=== PATIENT | female | born 1980 | race Caucasian/White ===

== ENCOUNTER 2022-11-09 15:12 | Emergency (ER) | payer OTHER ==
[2022-11-09 15:27] VITALS: BMI 88.6
[2022-11-09 16:44] LABS: PH,URINE 5.5 (5.0-8.0); URINE APPEARANCE CLEAR; URINE BILIRUBIN NEGATIVE (NEGATIVE); URINE COLOR YELLOW; URINE GLUCOSE (UA) NEGATIVE (NEGATIVE); URINE KETONE NEGATIVE (NEGATIVE); URINE LEUK ESTERASE NEGATIVE (NEGATIVE); URINE NITRITE NEGATIVE (NEGATIVE); URINE PROTEIN NEGATIVE (NEGATIVE); URINE UROBILINOGEN 0.2 mg/dL (0.2-1.0)
[2022-11-09 17:37] VITALS: BP 107/65; RESP 20; TEMP 98
[2022-11-09 17:39] VITALS: PULSE 75
== END 2022-11-09 17:30 | disposition home or self-care (01) ==
LOC: JER 15:12
DX: O26.892 Other specified pregnancy related conditions, second trimester (principal); R10.30 Lower abdominal pain, unspecified; R30.0 Dysuria; Z3A.20 20 weeks gestation of pregnancy
CPT/HCPCS: 81003; 87086; 99283-25

== ENCOUNTER 2023-03-01 10:14 | Emergency (ER) | payer OTHER ==
[2023-03-01 10:34] VITALS: BMI 35.2
[2023-03-01 11:55] LABS: BASO % 0.3 % (0-2.0); EOS % 0.6 % (0-4.5); HEMATOCRIT 32.5 % (32.4-45.2); HEMOGLOBIN 11.3 GM/dL (10.7-15.3); LYMPH % 16.5 % (8-40); MCH 31.1 pg (25.7-33.7); MCHC 34.8 g/dl (32.0-36.0); MEAN CELL VOLUME 89.5 fl (80-96); MEAN PLT VOLUME 7.8 fl (7.5-11.1); MONO % 6.8 % (3.8-10.2); NEUT % 75.8 % (42.8-82.8); PLATELET COUNT 366 10^3/uL (134-434); RBC 3.63 M/mm3 (3.60-5.2); WHITE BLOOD COUNT 8.5 K/mm3 (4.0-10.0)
[2023-03-01 12:13] LABS: POTASSIUM 4.2 mmol/L (3.5-5.1)
[2023-03-01 12:14] LABS: BLOOD UREA NITROGEN 9.9 mg/dL (7-18)
[2023-03-01 12:16] LABS: CALCIUM 8.7 mg/dL (8.5-10.1)
[2023-03-01 12:17] LABS: CREATININE 0.6 mg/dL (0.55-1.3)
[2023-03-01] MEDS ORDERED: CLINDAMYCIN 600MG PREMIX IVPB 600 MG/50 ML BAG IVPB ONE ×2 (12:42→13:44)
[2023-03-01 16:05] VITALS: BP 106/67; PULSE 91; RESP 18; TEMP 97.6
== END 2023-03-01 18:29 | disposition home or self-care (01) ==
LOC: JER 10:14 → JERFT 10:14 → JER 18:29
DX: O99.713 Diseases of the skin and subcutaneous tissue complicating pregnancy, third trimester (principal); L03.116 Cellulitis of left lower limb; O26.893 Other specified pregnancy related conditions, third trimester; M25.572 Pain in left ankle and joints of left foot; R22.42 Localized swelling, mass and lump, left lower limb; L53.9 Erythematous condition, unspecified; Z3A.31 31 weeks gestation of pregnancy
CPT/HCPCS: 36415; 73610-TC-LT-FY; 73630-TC-LT; 76882-TC-RT-FY; 80048; 85025; 87040; 99285-25

== ENCOUNTER 2023-03-19 10:15 | Inpatient (IN) | payer OTHER ==
[2023-03-19] MEDS ORDERED: CITRIC ACID/SODIUM CITRATE 30 ML UNIT-DOSE CUP PO ONE (12:38)
[2023-03-19 13:02] LABS: INR 1.03 (0.83-1.09); PROTHROMBIN TIME (PATIENT) 11.9 SEC (9.7-13.0)
[2023-03-19 13:03] LABS: ACTIVATED PTT 28.6 SECONDS (25.2-36.5)
[2023-03-19] MEDS ORDERED: FENTANYL CITRATE/PF 50 MCG/ML VIAL ONE (13:16)
[2023-03-19] MEDS ORDERED: morphine SULFATE/PF 1 MG/2 ML (2cc Syringe - QUVA) ONE (13:16)
[2023-03-19] MEDS ORDERED: ceFAZolin SODIUM 1 GM VIAL ONE (13:17)
[2023-03-19] MEDS ORDERED: OXYTOCIN 10 UNITS/ML VIAL ONE ×2 (13:18→13:54)
[2023-03-19 13:50] VITALS: BMI 35.5
[2023-03-19] MEDS ORDERED: KETOROLAC TROMETHAMINE 30 MG/1 ML VIAL ONE (14:04)
[2023-03-19] MEDS ORDERED: ONDANSETRON 4 MG/2 ML VIAL ONE (14:04)
[2023-03-19] MEDS ORDERED: DEXAMETHASONE SOD PHOSPHATE 4 MG/1 ML VIAL ONE (14:04)
[2023-03-19] MEDS ORDERED: ELECTROLYTE-148 SOLN 1,000 ML IV SCH (14:45)
[2023-03-19 14:55] LABS: CORD BASE EXCESS -1.2 mmol/L (0-2); CORD HCO3 24.7 mmHg (20-29); CORD PCO2 45.7 mmHg (30-78); CORD pH 7.351 (7.14-7.44)
[2023-03-19 14:57] LABS: CORD HCO3 24.8 mmHg (20-29); CORD PCO2 56.4 mmHg (30-78); CORD pH 7.261 (7.14-7.44)
[2023-03-19] MEDS ORDERED: ACETAMINOPHEN 1000 MG/100 ML BAG IVPB PRN (15:07)
[2023-03-19] MEDS ORDERED: ONDANSETRON 4 MG/2 ML VIAL IVPB PRN (15:07)
[2023-03-19] MEDS ORDERED: IBUPROFEN 600 MG TABLET (FP) PO PRN (15:07)
[2023-03-19] MEDS ORDERED: SENNOSIDES/DOCUSATE COMBO (SENNA PLUS) TABLET (UD) PO PRN (15:07)
[2023-03-19] MEDS ORDERED: ACETAMINOPHEN 325 MG TABLET (FP) PO PRN ×2 (15:07→15:15)
[2023-03-19] MEDS ORDERED: IBUPROFEN 800 MG/8 ML IJ IVPB PRN (15:07)
[2023-03-19] MEDS ORDERED: morphine SULFATE/PF 1 MG/2 ML (2cc Syringe - QUVA) EP ONE (15:15)
[2023-03-19] MEDS ORDERED: ONDANSETRON 4 MG/2 ML VIAL IVPUSH PRN (15:15)
[2023-03-19] MEDS: OXYTOCIN 20 UNITS in 0.9% NS 20 UNIT/1,000 ML INFUS.BAG IV SCH ×2 (16:21→23:24)
[2023-03-19] MEDS ORDERED: OXYTOCIN 20 UNITS in 0.9% NS 20 UNIT/1,000 ML INFUS.BAG IV ONE (16:25)
[2023-03-20 08:06] LABS: BASO % 0.4 % (0-2.0); EOS % 0.5 % (0-4.5); HEMATOCRIT 26.2 % (32.4-45.2); HEMOGLOBIN 8.9 GM/dL (10.7-15.3); LYMPH % 24.5 % (8-40); MEAN CELL VOLUME 88.2 fl (80-96); MEAN PLT VOLUME 8.1 fl (7.5-11.1); MONO % 7.8 % (3.8-10.2); NEUT % 66.8 % (42.8-82.8); PLATELET COUNT 266 10^3/uL (134-434); RBC 2.97 M/mm3 (3.60-5.2); RDW 13.2 % (11.6-15.6); WHITE BLOOD COUNT 8.3 K/mm3 (4.0-10.0)
[2023-03-20] MEDS: SIMETHICONE 80 MG TAB.CHEW (FP) PO PRN ×3 (09:01→22:14)
[2023-03-20] MEDS: oxyCODONE HCL 5 MG TABLET PO PRN ×2 (09:01→15:11)
[2023-03-20] MEDS: PRENATAL VITAMINS W/ FOLIC ACID TABLET (FP) PO SCH (10:58)
[2023-03-20] MEDS ORDERED: BISACODYL 10 MG SUPP.RECT RC PRN (15:07)
[2023-03-20] MEDS: FOLIC ACID 1 MG TABLET (FP) PO SCH (15:11)
[2023-03-20] MEDS: IBUPROFEN 600 MG TABLET (FP) PO PRN (22:14)
[2023-03-21] MEDS: IBUPROFEN 600 MG TABLET (FP) PO PRN (06:14)
[2023-03-21] MEDS: PRENATAL VITAMINS W/ FOLIC ACID TABLET (FP) PO SCH (10:11)
[2023-03-21] MEDS: FOLIC ACID 1 MG TABLET (FP) PO SCH (10:11)
[2023-03-21] MEDS: COLLAGENASE CLOSTRIDIUM HIST. 30 GRAMS TUBE TP SCH (12:56)
[2023-03-21] MEDS: FERROUS SO4 325 MG TABLET (FP) PO SCH ×2 (13:27→22:02)
[2023-03-21] MEDS: oxyCODONE HCL 5 MG TABLET PO PRN (20:22)
[2023-03-22] MEDS: FERROUS SO4 325 MG TABLET (FP) PO SCH (06:05)
[2023-03-22] MEDS: IBUPROFEN 600 MG TABLET (FP) PO PRN ×2 (06:05→09:22)
[2023-03-22] MEDS: COLLAGENASE CLOSTRIDIUM HIST. 30 GRAMS TUBE TP SCH (09:22)
[2023-03-22] MEDS: PRENATAL VITAMINS W/ FOLIC ACID TABLET (FP) PO SCH (09:22)
[2023-03-22] MEDS: FOLIC ACID 1 MG TABLET (FP) PO SCH (09:24)
[2023-03-22 10:32] VITALS: BP 100/62; PULSE 76; RESP 16; TEMP 97.8
== END 2023-03-22 13:40 | disposition home or self-care (01) | DRG 540 ==
LOC: JLDR 10:15 → J3W 17:41
PROVIDERS: ADMIT Family Medicine; ATTEND Family Medicine
PROC: 10D00Z1 Extraction of Products of Conception, Low, Open Approach (ICD-10-PCS; principal; 2023-03-19)
DX: O34.211 Maternal care for low transverse scar from previous cesarean delivery (principal); Z3A.39 39 weeks gestation of pregnancy; Z37.0 Single live birth; O90.81 Anemia of the puerperium; D64.9 Anemia, unspecified; S91.012D Laceration without foreign body, left ankle, subsequent encounter; V89.2XXD Person injured in unspecified motor-vehicle accident, traffic, subsequent encounter
CPT/HCPCS: 36415; 36600; 80048; 82803; 85025; 85610; 85730; 86780; 86850; 86900; 86901; 94010